=== PATIENT | female | born 1995 | race Caucasian/White ===

== ENCOUNTER 2016-04-23 23:25 | Emergency (ER) | payer MEDICAID ==
[2016-04-24] MEDS ORDERED: ONDANSETRON 4 MG TAB.RAPDIS SL ONE (01:24)
--- NOTE | 2016-04-24 01:36 | ER Document Report ---
ED Flu Like - General Chief Complaint: Abdominal Pain Stated Complaint: COUGH Time seen by provider: 01:34 Mode of Arrival: Ambulatory Information source: Patient TRAVEL OUTSIDE OF THE [place] IN LAST 30 DAYS: No - HPI Patient complains to provider of: cough, vomiting, throat pain, diarrhea Onset: This morning Timing/Duration: Sudden Quality of pain: Achy Severity: Moderate Pain Level: 3 Associated symptoms: Body/muscle aches, Chills, Nonproductive cough, Diarrhea, Nausea, Vomiting, Sore throat Similar symptoms previously: No Recently seen / treated by doctor: No Notes: Patient is a 20-year-old female with no past medical history, presenting to the emergency room for symptoms that include hot flashes, vomiting, sore throat, coughing with chest pain, generalized malaise, nausea, diarrhea, symptoms started this morning around 7 AM, she denies any specific sick contacts but 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, unsure whether she could be , positive smoker - Related Data Allergies/Adverse Reactions: No Known Allergies Allergy (Unverified 04/29/14 22:25) Past Medical History - General Information source: Patient - Social History Smoking Status: Current Every Day Smoker Family History: Reviewed & Not Pertinent Patient has suicidal ideation: No Patient has homicidal ideation: No Renal/ Medical History: Denies: Hx Peritoneal Dialysis Psychiatric Medical History: Reports: Hx Attention Deficit Hyperactivity Disorder - Immunizations Immunizations up to date: Yes Hx Diphtheria, Pertussis, Tetanus Vaccination: Yes Review of Systems - Review of Systems Constitutional: See HPI EENT: No symptoms reported Cardiovascular: No symptoms reported Respiratory: Cough Gastrointestinal: See HPI Genitourinary: No symptoms reported Female Genitourinary: No symptoms reported Musculoskeletal: See HPI Skin: No symptoms reported Hematologic/Lymphatic: No symptoms reported Neurological/Psychological: No symptoms reported -: Yes All other systems reviewed and negative Physical Exam - Vital signs Vitals: Temp Pulse Resp BP Pulse Ox 98.3 F 97 16 111/66 100 04/23/16 23:32 04/23/16 23:32 04/23/16 23:32 04/23/16 23:32 04/23/16 23:32 Interpretation: Normal - General General appearance: Appears well, Alert - HEENT Head: Normocephalic, Atraumatic Eyes: Normal Conjunctiva: Normal Extraocular movements intact: Yes Eyelashes: Normal Pupils: PERRL Mucous membranes: Normal Pharynx: Erythema, Tonsillar hypertrophy Neck: Normal - Respiratory Respiratory status: No respiratory distress Chest status: Nontender Breath sounds: Normal Chest palpation: Normal - Cardiovascular Rhythm: Regular Heart sounds: Normal auscultation Murmur: No - Abdominal Inspection: Normal Distension: No distension Bowel sounds: Normal Tenderness: Nontender Organomegaly: No organomegaly - Back Back: Normal, Nontender - Extremities General upper extremity: Normal inspection, Nontender, Normal color, Normal ROM , Normal temperature General lower extremity: Normal inspection, Nontender, Normal color, Normal ROM , Normal temperature, Normal weight bearing. No: Jovany's sign - Neurological Neuro grossly intact: Yes Cognition: Normal Orientation: AAOx4 [place] Coma Scale Eye Opening: Spontaneous [place] Coma Scale Verbal: Oriented [place] Coma Scale Motor: Obeys Commands [place] Coma Scale Total: 15 Speech: Normal Motor strength normal: LUE, RUE, LLE, RLE Sensory: Normal - Psychological Associated symptoms: Normal affect, Normal mood - Skin Skin Temperature: Warm Skin Moisture: Dry Skin Color: Normal Course - Re-evaluation Re-evalutation: 04/24/16 02:26 Laboratory results were discussed with patient at bedside which are unremarkable , symptoms are consistent with viral illness, patient was advised supportive care and follow-up with primary care provider or return if symptoms worsen, patient acknowledges understanding and agreement with this plan - Vital Signs Vital signs: Temp Pulse Resp BP Pulse Ox 98.3 F 97 16 111/66 100 04/23/16 23:32 04/23/16 23:32 04/23/16 23:32 04/23/16 23:32 04/23/16 23:32 - Laboratory Laboratory results interpreted by me: 04/24/16 01:39 Urine Protein 30 H Urine Ketones 80 H Discharge - Discharge Clinical Impression: Viral illness Condition: Stable Disposition: HOME, SELF-CARE Instructions: Viral Syndrome ([facility]) Additional Instructions: Drink plenty of fluids.. Tylenol or Motrin as needed for fever. Follow-up with your primary care provider in one to 2 days. Return to the emergency room immediately if symptoms worsen or any additional concerns. Forms: Return to Work
[2016-04-24 02:03] LABS: APPEARANCE,URINE SLIGHTLY-CLOUDY; BILIRUBIN,URINE NEGATIVE (NEGATIVE); GLUCOSE, URINE NEGATIVE (NEGATIVE); KETONES,URINE 80 mg/dL (NEGATIVE); LEUKOCYTE ESTERASE,URINE NEGATIVE (NEGATIVE); NITRITE,URINE NEGATIVE (NEGATIVE); PROTEIN,URINE 30 mg/dL (NEGATIVE); UROBILINOGEN,URINE NEGATIVE mg/dL (<2.0)
[2016-04-24] MEDS ORDERED: ONDANSETRON ODT 4 MG TAB (6 TAB/DSPK) PO PRN (02:28)
[2016-04-24 02:45] VITALS: BP 106/60
== END 2016-04-24 02:40 | disposition home or self-care (01) ==
LOC: ER 23:25
DX: B34.9 Viral infection, unspecified (principal); R05 Cough; R68.83 Chills (without fever); R19.7 Diarrhea, unspecified; R11.2 Nausea with vomiting, unspecified; M79.1 Myalgia; J02.9 Acute pharyngitis, unspecified; R07.9 Chest pain, unspecified; R53.81 Other malaise; J35.1 Hypertrophy of tonsils; F17.200 Nicotine dependence, unspecified, uncomplicated
CPT/HCPCS: 99283; 87070; 87880; 81025; 81001; S0119

== ENCOUNTER 2016-06-21 09:07 | Emergency (ER) | payer SELFPAY ==
[2016-06-21 09:15] VITALS: BP 134/70
--- NOTE | 2016-06-21 09:43 | ER Document Report ---
ED Hand/Wrist Injury - General Chief Complaint: Hand Pain Stated Complaint: HAND PAIN Notes: The patient is a 21-year-old female who presents with left hand pain after she slammed in a door last night. She is noticing swelling over the dorsal surface of her left hand. Denies open wounds, numbness, tingling, wrist pain or any other injuries. TRAVEL OUTSIDE OF THE [place] IN LAST 30 DAYS: No - Related Data Allergies/Adverse Reactions: No Known Allergies Allergy (Unverified 04/29/14 22:25) Past Medical History - General Information source: Patient - Social History Smoking Status: Current Every Day Smoker Frequency of alcohol use: None Drug Abuse: Marijuana Family History: Reviewed & Not Pertinent Patient has suicidal ideation: No Patient has homicidal ideation: No Renal/ Medical History: Denies: Hx Peritoneal Dialysis Psychiatric Medical History: Reports: Hx Attention Deficit Hyperactivity Disorder - Immunizations Immunizations up to date: Yes Hx Diphtheria, Pertussis, Tetanus Vaccination: Yes Review of Systems - Review of Systems Notes: REVIEW OF SYSTEMS: CONSTITUTIONAL: -fevers, -chills EENT: -eye pain, -difficulty swallowing, -nasal congestion CARDIOVASCULAR:-chest pain, -syncope. RESPIRATORY: -cough, -SOB GASTROINTESTINAL: -abdominal pain, - nausea, -vomiting, -diarrhea GENITOURINARY: -dysuria, -hematuria MUSCULOSKELETAL: +left hand pain, -back pain, -neck pain SKIN: -rash or skin lesions. HEMATOLOGIC: -easy bruising or bleeding. LYMPHATIC: -swollen, enlarged glands. NEUROLOGICAL: -altered mental status or loss of consciousness, -headache, - neurologic symptoms PSYCHIATRIC: -anxiety, -depression. ALL OTHER SYSTEMS REVIEWED AND NEGATIVE. Physical Exam - Vital signs Vitals: Temp Pulse Resp BP Pulse Ox 99.1 F 101 H 16 134/70 H 100 06/21/16 09:14 06/21/16 09:14 06/21/16 09:14 06/21/16 09:14 06/21/16 09:14 - Notes Notes: PHYSICAL EXAMINATION: GENERAL: Well-appearing, well-nourished and in no acute distress. HEAD: Atraumatic, normocephalic. EYES: Pupils equal round and reactive to light, extraocular movements intact, sclera anicteric, conjunctiva are normal. ENT: nares patent, oropharynx clear without exudates. Moist mucous membranes. NECK: Normal range of motion, supple without lymphadenopathy LUNGS: Breath sounds clear to auscultation bilaterally and equal. No wheezes rales or rhonchi. HEART: Regular rate and rhythm without murmurs ABDOMEN: Soft, nontender, normoactive bowel sounds. No guarding, no rebound. No masses appreciated. EXTREMITIES: Swelling and contusion over dorsal surface of second and third metacarpals, normal range of motion, no pitting or edema. No cyanosis. Brisk capillary refill. NEUROLOGICAL: Cranial nerves grossly intact. Normal speech, normal gait. Normal sensory, motor, and reflex exams. PSYCH: Normal mood, normal affect. Course - Re-evaluation Re-evalutation: No fracture on x-ray. Neurovascular intact distally. Will treat for hand contusion with anti-inflammatories and ice. - Vital Signs Vital signs: Temp Pulse Resp BP Pulse Ox 99.1 F 101 H 16 134/70 H 100 06/21/16 09:14 06/21/16 09:14 06/21/16 09:14 06/21/16 09:14 06/21/16 09:14 - Diagnostic Test Radiology reviewed: Image reviewed, Reports reviewed Radiology results interpreted by me: Left hand x-ray: NAD Discharge - Discharge Clinical Impression: Contusion of left hand Qualifiers: Encounter type: initial encounter Qualified Code(s): S60.222A - Contusion of left hand, initial encounter Condition: Good Disposition: HOME, SELF-CARE Additional Instructions: Contusion Your injury has resulted in a contusion -- a crushing of the deep tissues. No injury to important structures was detected during the physician's exam. Contusions vary in the amount of pain they cause, and in the length of time required for healing. Typically, the area will become bruised, and will remain painful to touch for two or three weeks. However, most patients are back to working and playing within a few days. After the initial period of rest and cold-packs, your symptoms (together with the doctor's recommendations) will determine how rapidly you can get back to full activity. Usually this means "do what feels okay, but don't do things that hurt." If re-examination was recommended, it's important to follow up as instructed. Call the doctor or return any time if pain increases, if swelling becomes severe, if you develop numbness or weakness in an injured extremity, or if any other alarming symptoms occur. Referrals: SHERITA ESCALANTE, DO [ACTIVE STAFF] - Follow up as needed
[2016-06-21] MEDS ORDERED: IBUPROFEN 600 MG TABLET PO ONE (10:00)
== END 2016-06-21 10:30 | disposition home or self-care (01) ==
LOC: ER 09:07
DX: S60.222A Contusion of left hand, initial encounter (principal); W23.0XXA Caught, crushed, jammed, or pinched between moving objects, initial encounter; F17.200 Nicotine dependence, unspecified, uncomplicated
CPT/HCPCS: 99283

== ENCOUNTER 2019-02-01 13:02 | Emergency (ER) | payer SELFPAY ==
[2019-02-01 13:20] VITALS: BP 111/65
--- NOTE | 2019-02-01 13:23 | ER Document Report ---
HPI - HPI Time Seen by Provider: 02/01/19 13:18 Context: Patient is a 23-year-old female who presents the emergency department with a chief complaint of right fourth toe pain. Patient reports that she has had pain for a few weeks. Patient denies injury or fall. Patient denies stepping on a f oreign object or having bleeding or oozing from the toe. Patient reports the pain is to the lateral aspect of the right fourth toe. She states that she is up on her feet a lot at work which does make this pain worse. Patient states it feels like a bump on the side of her toe. Patient has redness to the foot. Patient reports is been taking ibuprofen as needed for pain. - REPRODUCTIVE Reproductive: DENIES: : Past Medical History - General Information source: Patient - Social History Smoking Status: Unknown if Ever Smoked Lives with: Family Family History: Reviewed & Not Pertinent - Past Medical History Cardiac Medical History: Reports: None Pulmonary Medical History: Reports: None EENT Medical History: Reports: None Neurological Medical History: Reports: None Endocrine Medical History: Reports: None Renal/ Medical History: Reports: None. Denies: Hx Peritoneal Dialysis Malignancy Medical History: Reports: None GI Medical History: Reports: None Musculoskeletal Medical History: Reports None Skin Medical History: Reports None Psychiatric Medical History: Reports: Hx Attention Deficit Hyperactivity Disorder Traumatic Medical History: Reports: None Infectious Medical History: Reports: None Surgical Hx: Negative - Immunizations Immunizations up to date: Yes Hx Diphtheria, Pertussis, Tetanus Vaccination: Yes Vertical Provider Document - CONSTITUTIONAL Agree With Documented VS: Yes Exam Limitations: No Limitations General Appearance: No Apparent Distress - INFECTION CONTROL TRAVEL OUTSIDE OF THE [place] IN LAST 30 DAYS: No - HEENT HEENT: Atraumatic, Normocephalic, PERRLA - RESPIRATORY Respiratory: Breath Sounds Normal, No Respiratory Distress - CARDIOVASCULAR Cardiovascular: Regular Rate, Regular Rhythm - GI/ABDOMEN Gastrointestinal: Abdomen Soft, Abdomen Non-Tender - NEURO Level of Consciousness: Awake, Alert, Appropriate - DERM Integumentary: Warm, Dry Notes: There is a circular diffuse thickening of the outermost layer of the skin on the lateral aspect of the fourth right toe. No central core at this time. This does appear to be at a site of friction as the fifth toe does touch this area. There is no erythema. There is no ecchymosis. Patient is able to wiggle all of her digits on the right foot. Course - Re-evaluation Re-evalutation: 02/01/19 13:31 Patient symptoms are consistent with a callus. I did inform the patient this could develop into a corn. Basically they are treated the same. I did give patient information from up-to-date in regards to calluses and corns and treatment. Discharge - Discharge Clinical Impression: Callus of foot Toe pain Qualifiers: Laterality: right Qualified Code(s): M79.674 - Pain in right toe(s) Condition: Stable Disposition: HOME, SELF-CARE Additional Instructions: Today you are seen in the emergency department for a bump on the fourth toe of the right foot. This does appear to be a callus. Calluses are diffuse thickening of the outermost layer of the skin due to repeated friction or pressure. *Please rest, you can use gauze in between the fourth and fifth toe to prevent rubbing and friction. *Please see the attached instructions from [facility] regarding Callus and treatment. The treatment of choice for calluses or corns is application of salicylic acid plasters. Salicylic acid plaster 40% is available without a prescription.
== END 2019-02-01 13:36 | disposition home or self-care (01) ==
LOC: ER 13:02
DX: L84 Corns and callosities (principal); M79.674 Pain in right toe(s)

== ENCOUNTER → 2019-03-05 | Outpatient (CLI) | payer MEDICAID | LOC: OD 16:30 | PROVIDERS: ATTEND Obstetrics & Gynecology Gynecology | DX: O26.851 Spotting complicating pregnancy, first trimester (principal); Z3A.00 Weeks of gestation of pregnancy not specified | CPT/HCPCS: 36415; 86900; 86901 ==

== ENCOUNTER 2019-06-10 05:49 | Outpatient (CLI) | payer MEDICAID ==
[2019-06-10 06:41] LABS: APPEARANCE,URINE CLEAR; BILIRUBIN,URINE NEGATIVE (NEGATIVE); COLOR,URINE YELLOW; GLUCOSE, URINE NEGATIVE (NEGATIVE); KETONES,URINE NEGATIVE (NEGATIVE); LEUKOCYTE ESTERASE,URINE NEGATIVE (NEGATIVE); NITRITE,URINE NEGATIVE (NEGATIVE); PROTEIN,URINE NEGATIVE (NEGATIVE); URINE SPECIFIC GRAVITY 1.016; UROBILINOGEN,URINE NEGATIVE mg/dL (<2.0)
[2019-06-10 06:42] LABS: URINE AMPHETAMINES SCREEN NEGATIVE; URINE BARBITURATES SCREEN NEGATIVE; URINE BENZODIAZEPINES SCREEN NEGATIVE; URINE COCAINE SCREEN NEGATIVE; URINE METHADONE SCREEN NEGATIVE; URINE PHENCYCLIDINE SCREEN NEGATIVE
[2019-06-10 07:05] LABS: URINE MARIJUANA (THC) SCREEN UNCONFIRMED POSITIVE
[2019-06-10 07:57] LABS: CHLAM PCR NOT DETECTED (NOT DETECT)
== END 2019-06-10 08:20 | disposition home or self-care (01) ==
LOC: LC 05:49
PROVIDERS: ATTEND Obstetrics & Gynecology
PROC: 4A1HXCZ Monitoring of Products of Conception, Cardiac Rate, External Approach (ICD-10-PCS; principal; 2019-06-10)
DX: O46.92 Antepartum hemorrhage, unspecified, second trimester (principal); O47.03 False labor before 37 completed weeks of gestation, third trimester; O99.332 Smoking (tobacco) complicating pregnancy, second trimester; F17.210 Nicotine dependence, cigarettes, uncomplicated; Z3A.21 21 weeks gestation of pregnancy
CPT/HCPCS: 59899; 81001; 80307; 87491; 87591; G0480 ×2; 80349

== ENCOUNTER 2019-06-26 08:40 | Inpatient (IN) | payer MEDICAID ==
[2019-06-26] MEDS ORDERED: HYDROMORPHONE HCL INJ/PF 2 MG/ML AMPULE IV ONE (09:02)
[2019-06-26] MEDS ORDERED: HYDROMORPHONE HCL INJ/PF 2 MG/ML AMPULE ONE (09:02)
[2019-06-26] MEDS ORDERED: OXYTOCIN 10 UNIT/ML VIAL ONE (09:05)
[2019-06-26] MEDS ORDERED: OXYTOCIN/NORMAL SALINE 0 UNIT/0 ML RTUINJ ONE (09:05)
--- NOTE | 2019-06-26 09:13 | Admission Physical ---
Datetime Report Generated by CPN: 06/26/2019 09:13 CURRENT ADMISSION Chief Complaint: Uterine Contractions Indication for Induction: Not Applicable Admit Impression : , Intrauterine Admit Plan: Observation/Evaluation ALLERGIES Medication Allergies: No Medication Allergies: No Known Allergies (04/29/2014) Latex: No Latex Allergies Food Allergies: none Environmental Allergies: none OBSTETRICAL HISTORY EDC: 10/19/2019 00:00 : 1 Para: 0 Term: 0 : 0 SAB: 0 IAB: 0 Ectopic: 0 Livin Cesareans: 0 VBACs: 0 Multiple Births: 0 Gestational Diabetes: No Rh Sensitization: No Incompetent Cervix: No WILDER: No Infertility: No ART Treatment: No Uterine Anomaly: No IUGR: No Hx Previous C/S: No Macrosomia: No Hx Loss/Stillborn: No PIH: No Hx : No Placenta Previa/Abruption: No Depression/PP Depression: No PTL/PROM: No Post Hemorrhage: No Obstetrical History Comments: G1- current SEE RECORDS Alcohol: No Marijuana : No Cocaine: No Other Illicit Drugs: No Cigarettes: Current Everyday Smoker. [id number] Cigarette Frequency: 5 - 10 per day Advised to Stop: Yes MEDICAL HISTORY Diabetes: No Blood Transfusion: No Pulmonary Disease (Asthma, TB): No Breast Disease: No Hypertension: No Analysis Internship Surgery: No Heart Disease: No Hosp/Surgery: No Autoimmune Disorder: No Anesthetic Complications: No Kidney Disease: No Abnormal Pap Smear: No Neuro/Epilepsy: No Psychiatric Disorders: No Other Medical Diseases: No Hepatitis/Liver Disease: No Significant Family History: No Varicosities/Phlebitis: No Trauma/Violence : No Thyroid Dysfunction: No INFECTIOUS HISTORY Gonorrhea: No Genital Herpes: No Chlamydia: Yes Tuberculosis: No Syphilis: No Hepatitis: No HIV/AIDS Exposure: No Rash or Viral Illness: No HPV: No Infectious History Comments: Chlamydia treated 04/21, no EDYTA yet PHYSICAL EXAM General: Normal HEENT: Normal Neurologic: Normal Thyroid: Normal Heart: Normal Lungs: Normal Breast: Deferred Back: Normal Abdomen: Normal Genitourinary Exam: Normal Extremities: Normal DTRs: Normal Pelvic Type: Adequate FETUS A EGA: 23.4 Admit Comment: pt delivered a stillborn at home. pt arrived via EMS with fetus attached and undelivered placenta, Cord clamped and placenta spomtaneously delived intact. INFORMED CONSENT Signature: with User ID: [email or web address]
[2019-06-26 09:38] LABS: APPEARANCE,URINE CLEAR; BILIRUBIN,URINE NEGATIVE (NEGATIVE); COLOR,URINE STRAW; GLUCOSE, URINE NEGATIVE (NEGATIVE); KETONES,URINE 20 mg/dL (NEGATIVE); LEUKOCYTE ESTERASE,URINE NEGATIVE (NEGATIVE); NITRITE,URINE NEGATIVE (NEGATIVE); PROTEIN,URINE NEGATIVE (NEGATIVE); URINE SPECIFIC GRAVITY 1.002; UROBILINOGEN,URINE NEGATIVE mg/dL (<2.0)
[2019-06-26 09:57] LABS: URINE AMPHETAMINES SCREEN NEGATIVE; URINE BARBITURATES SCREEN NEGATIVE; URINE BENZODIAZEPINES SCREEN NEGATIVE; URINE COCAINE SCREEN NEGATIVE; URINE METHADONE SCREEN NEGATIVE; URINE PHENCYCLIDINE SCREEN NEGATIVE
[2019-06-26 10:06] LABS: URINE MARIJUANA (THC) SCREEN UNCONFIRMED POSITIVE
[2019-06-26 10:11] LABS: ABSOLUTE MONOCYTES (AUTO) 0.6 10^3/uL (0.1-1.4); BASOPHILS % (AUTO) 0.1 % (0-2); EOSINOPHILS % (AUTO) 0.1 % (0-6); HEMOGLOBIN 12.8 g/dL (12.0-15.5); LYMPHOCYTES % (AUTO) 5.3 % (13-45); MEAN CORPUSCULAR HGB CONC 33.7 g/dL (32.0-36.0); MEAN CORPUSCULAR VOLUME 95 fl (80-97); PLATELET COUNT 285 10^3/uL (150-450); RED CELL DISTRIBUTION WIDTH 12.6 % (11.5-14.0); SEGMENTED NEUTROPHILS % (AUTO) 91.5 % (42-78); TOTAL CELLS COUNTED % (AUTO) 100 %; WHITE BLOOD COUNT 18.6 10^3/uL (4.0-10.5)
[2019-06-26 11:19] LABS: CHLAM PCR NOT DETECTED (NOT DETECT)
[2019-06-26] MEDS ORDERED: IBUPROFEN 800 MG TABLET ONE (14:41)
[2019-06-26] MEDS ORDERED: IBUPROFEN 800 MG TABLET PO ONE (14:44)
--- NOTE | 2019-06-26 14:44 | PDOC DISCHARGE SUMMARY ---
Impression - Admit/DC Date/PCP Admission Date/Primary Care Provider: 06/26/19 09:04 TRUONG SANTIAGO MD Discharge Date: 06/26/19 - Discharge Diagnosis (1) demise > 22 weeks, delivered, current hospitalization Is this a current diagnosis for this admission?: Yes (2) delivery Is this a current diagnosis for this admission?: Yes - Additional Information Discharge Diet: Regular Discharge Activity: Balance Activity w/Rest, Pelvic Rest Referrals: TRUONG SANTIAGO MD [Primary Care Provider] - Prescriptions: Ibuprofen [Ibu] 800 mg PO Q8HP PRN #30 tablet PRN Reason: Home Medications: Vit,Calc76/Iron/Folic [Prenatabs Rx Tablet] 1 each PO DAILY 06/10/19 Ibuprofen [Ibu] 800 mg PO Q8HP PRN #30 tablet 06/26/19 HPI Gestational Age: 24 Reason(s) for Admission: Labor - with delivery at home Intrapartum Procedure(s): Spontaneous Vaginal Delivery Results Laboratory Results: WBC 18.6 10^3/uL (4.0-10.5) H 06/26/19 09:25 RBC 4.00 10^6/uL (3.72-5.28) 06/26/19 09:25 Hgb 12.8 g/dL (12.0-15.5) 06/26/19 09:25 Hct 38.0 % (36.0-47.0) 06/26/19 09:25 MCV 95 fl (80-97) 06/26/19 09:25 MCH 32.0 pg (27.0-33.4) 06/26/19 09:25 MCHC 33.7 g/dL (32.0-36.0) 06/26/19 09:25 RDW 12.6 % (11.5-14.0) 06/26/19 09:25 Plt Count 285 10^3/uL (150-450) 06/26/19 09:25 Lymph % (Auto) 5.3 % (13-45) L 06/26/19 09:25 [place] % (Auto) 3.0 % (3-13) 06/26/19 09:25 Eos % (Auto) 0.1 % (0-6) 06/26/19 09:25 Baso % (Auto) 0.1 % (0-2) 06/26/19 09:25 Absolute Neuts (auto) 17.0 10^3/uL (1.7-8.2) H 06/26/19 09:25 Absolute Lymphs (auto) 1.0 10^3/uL (0.5-4.7) 06/26/19 09:25 Absolute Monos (auto) 0.6 10^3/uL (0.1-1.4) 06/26/19 09:25 Absolute Eos (auto) 0.0 10^3/uL (0.0-0.6) 06/26/19 09:25 Absolute Basos (auto) 0.0 10^3/uL (0.0-0.2) 06/26/19 09:25 Seg Neutrophils % 91.5 % (42-78) H 06/26/19 09:25 Urine Color STRAW 06/26/19 09:24 Urine Appearance CLEAR 06/26/19 09:24 Urine pH 6.0 (5.0-9.0) 06/26/19 09:24 Ur Specific [place] 1.002 06/26/19 09:24 Urine Protein NEGATIVE mg/dL (NEGATIVE) 06/26/19 09:24 Urine Glucose (UA) NEGATIVE mg/dL (NEGATIVE) 06/26/19 09:24 Urine Ketones 20 mg/dL (NEGATIVE) H 06/26/19 09:24 Urine Blood LARGE (NEGATIVE) H 06/26/19 09:24 Urine Nitrite NEGATIVE (NEGATIVE) 06/26/19 09:24 Urine Bilirubin NEGATIVE (NEGATIVE) 06/26/19 09:24 Urine Urobilinogen NEGATIVE mg/dL (<2.0) 06/26/19 09:24 Ur Leukocyte Esterase NEGATIVE (NEGATIVE) 06/26/19 09:24 Urine Ascorbic Acid NEGATIVE (NEGATIVE) 06/26/19 09:24 Urine Opiates Screen UNCONFIRMED POSITIVE 06/26/19 09:24 Urine Methadone Screen NEGATIVE 06/26/19 09:24 Ur Barbiturates Screen NEGATIVE 06/26/19 09:24 Ur Phencyclidine Scrn NEGATIVE 06/26/19 09:24 Ur Amphetamines Screen NEGATIVE 06/26/19 09:24 U Benzodiazepines Scrn NEGATIVE 06/26/19 09:24 Urine Cocaine Screen NEGATIVE 06/26/19 09:24 U Marijuana (THC) Screen UNCONFIRMED POSITIVE 06/26/19 09:24 Chlamydia DNA (PCR) NOT DETECTED (NOT DETECT) 06/26/19 09:24 N.gonorrhoeae DNA (PCR) NOT DETECTED (NOT DETECT) 06/26/19 09:24 Blood Type O POSITIVE 06/26/19 09:25 Antibody Screen NEGATIVE 06/26/19 09:25 Plan Plan of Treatment: return to [facility] in 2 weeks with demise f/u
== END 2019-06-26 15:01 | disposition home or self-care (01) | DRG 779 ==
LOC: LC 08:40 → LR 08:51 → OBSVTOIN 09:04
PROVIDERS: ADMIT Obstetrics & Gynecology Gynecology; ATTEND Obstetrics & Gynecology Gynecology
PROC: 10E0XZZ Delivery of Products of Conception, External Approach (ICD-10-PCS; principal; 2019-06-26)
DX: O03.4 Incomplete spontaneous abortion without complication (principal); F17.210 Nicotine dependence, cigarettes, uncomplicated
CPT/HCPCS: 36415; 80307; 80349; 81005; 85025; 86592; 86850; 86900; 86901; 87491; 87591; 88307; G0480; J1170; J2590